=== PATIENT | male | born 1945 | race Caucasian/White ===

== ENCOUNTER → 2016-10-31 | Day surgery (SDC) | payer MEDICARE, OTHER ==
[~2016-10-31] MED LIST: AMBIEN10 MG PO; CALCIUM 250+D T1 TAB PO; CENTRUM COMPLE1 EACH PO; COLACE PO; COQ1050 MG PO; DESYREL100 MG PO; EFFEXOR75 M1 PO; FINASTERIDE5 M1 PO; FLEXERIL10 M1 PO; FLEXERIL10 MG PO; FLOMAX0.4 M1 PO; FLORA-Q 2 CAPSU1 CAP PO; KLONOPIN0.5 MG PO; LIPOIC ACID1 GM PO; MAGNESIUM100 MG PO; NAPROSYN500 MG PO; NEURONTIN300 MG PO; OMEGA 3 FISH OI1 CAP PO; OXYCODONE-ACET1 EAC1 PO; SIMVASTATIN80 MG PO; VITAMIN D-32000 UNI1 PO; WELLBUTRIN SR150 MG PO
--- NOTE | ~2016-10-31 | OR ---
Unit #: [id number] #: [id number] Patient: PRABHAKAR LEONARD [id number] [address] [address] [id number] O MR#: [id number] NAME: PRABHAKAR LEONARD. ROOM: Date of Procedure: 10/31/2016 Admission Date: 10/31/2016 Surgeon: Houston Sullivan M.D. : 1945 Attending Physician: Houston Sullivan M.D. Primary Care Physician: Kishan Nichols M.D. OPERATIVE REPORT PREOPERATIVE DIAGNOSES 1. Spinal stenosis. 2. Postfusion degenerative disk disease. 3. Back pain. 4. Radiculopathy. POSTOPERATIVE DIAGNOSES 1. Spinal stenosis. 2. Postfusion degenerative disk disease. 3. Back pain. 4. Radiculopathy. PROCEDURE PERFORMED Lumbar epidural steroid injection with fluoroscopic guidance for needle localization. INDICATIONS FOR PROCEDURE The patient is a 71-year-old male with back and bilateral lower extremity pain. He has multilevel multifactorial severe degenerative lumbar disk disease. He has been fused at L1-L2 and had thoracolumbar osteomyelitis and diskitis treated. He was treated in the past with epidural steroids with some decent success and was also managed medically. Plan is to repeat an epidural steroid injection at this point based on history, pathology, symptomatology, and treatment options. He will be does better with a small series of injections to see that lasted longer than he has done with single injections in the past. DESCRIPTION OF PROCEDURE The patient was placed in a seated position. Standard monitors were applied. Sterile prep and drape of the lumbar area was performed. The skin then at the L4 level was localized with 1% lidocaine. An 18-gauge [employer] needle was then advanced via loss of resistance technique and fluoroscopic guidance in toward the epidural space. A long needle was required. The patient did not complain of any pain or paresthesia during needle advancement. After confirming proper positioning with fluoroscopy and radiographic contrast, 80 mg of Depo-Medrol and 6 mL of preservative-free normal saline were deposited. The patient tolerated the procedure otherwise well and was discharged to the recovery room in stable condition. Dictated by... Unit #: [id number] #: [id number] Patient: NEUNPRABHAKAR FORD M.D. [facility]/zak TD: 11/01/2016 02:40 JOB #: [id number] OPERATIVE REPORT X Houston Sullivan MD X PROCEDURE OPERATIVE NOTE
== END | disposition home or self-care (01) ==
LOC: CCSC 11:23
PROVIDERS: Pain Medicine Pain Medicine
PROC: 3E0R3BZ Introduction of Anesthetic Agent into Spinal Canal, Percutaneous Approach (ICD-10-PCS; 2016-10-31)
PROC: 3E0R33Z Introduction of Anti-inflammatory into Spinal Canal, Percutaneous Approach (ICD-10-PCS; principal; 2016-10-31 12:15)
DX: M48.06 Spinal stenosis, lumbar region (principal); M51.16 Intervertebral disc disorders with radiculopathy, lumbar region; M41.9 Scoliosis, unspecified; Z98.1 Arthrodesis status; Z79.899 Other long term (current) drug therapy
CPT/HCPCS: J1040; J2250

== ENCOUNTER → 2016-11-07 | Day surgery (SDC) | payer MEDICARE, OTHER ==
--- NOTE | ~2016-11-07 | OR ---
Unit #: [id number] #: [id number] Patient: PRABHAKAR LEONARD [id number] [address] [address] [id number] O MR#: [id number] NAME: PRABHAKAR LEONARD. ROOM: Date of Procedure: 11/07/2016 Admission Date: 11/07/2016 Surgeon: Houston Sullivan M.D. : 1945 Attending Physician: Houston Sullivan M.D. Primary Care Physician: Ny Senior OPERATIVE REPORT JOB NOTE: CC: [facility]ENTER PREOPERATIVE DIAGNOSES 1. Spinal stenosis. 2. Degenerative disk disease. 3. Back pain. 4. Radiculopathy. POSTOPERATIVE DIAGNOSES 1. Spinal stenosis. 2. Degenerative disk disease. 3. Back pain. 4. Radiculopathy. PROCEDURE PERFORMED Lumbar epidural steroid injection with fluoroscopic guidance for needle localization. INDICATIONS FOR PROCEDURE The patient is a 71-year-old male with back and bilateral lower extremity pain with a longstanding problem that recently increased, had prior thoracolumbar decompression due to diskitis. He has severe stenosis at L2-L3, L3-L4, and L4-L5. Initial epidural steroid injection resulted in very good improvement for about 4 days and so the pain returned and he still has retained some [id number] relief. Based on his partial response, his pathology, and symptomatology, we are going to proceed with a second injection today. DESCRIPTION OF PROCEDURE The patient was placed in a seated position. Standard monitors were applied. Sterile prep and drape of the lumbar area was performed. The skin then to the right of midline at the L3-L4 level was localized with 1% lidocaine. An 18-gauge [employer] needle was then advanced via right paramedian approach and loss of resistance technique in toward the epidural space. The patient tolerated the procedure without complaint. After confirming proper positioning with fluoroscopy and radiographic contrast, 80 mg of Depo-Medrol and 4 mL of preservative-free normal saline were deposited. The patient tolerated the procedure otherwise well and was discharged to the recovery room in stable condition. Dictated by... Unit #: [id number] #: [id number] Patient: PRABHAKAR LEONARD Houston Sullivan M.D. [facility]/modl TD: 11/08/2016 01:52 JOB #: [id number] OPERATIVE REPORT X Houston Sullivan MD X PROCEDURE OPERATIVE NOTE
== END | disposition home or self-care (01) ==
LOC: CCSC 11:09
DX: M51.16 Intervertebral disc disorders with radiculopathy, lumbar region (principal); M48.06 Spinal stenosis, lumbar region; M41.9 Scoliosis, unspecified
CPT/HCPCS: J1040; J2250

== ENCOUNTER → 2016-11-14 | Day surgery (SDC) | payer MEDICARE, OTHER ==
--- NOTE | ~2016-11-14 | OR ---
Unit #: [id number] #: [id number] Patient: PRABHAKAR LEONARD [id number] [address] [address] [id number] O MR#: [id number] NAME: PRABHAKAR LEONARD ROOM: Date of Procedure: 11/14/2016 Admission Date: 11/14/2016 Surgeon: Houston Sullivan M.D. : 1945 Attending Physician: Houston Sullivan M.D. OPERATIVE REPORT JOB NOTE: CC: [facility] CENTER PREOPERATIVE DIAGNOSES 1. Back pain. 2. Radiculopathy. 3. Spinal stenosis. 4. Postfusion. POSTOPERATIVE DIAGNOSES 1. Back pain. 2. Radiculopathy. 3. Spinal stenosis. 4. Postfusion. PROCEDURE PERFORMED Lumbar epidural steroid injection with fluoroscopic guidance for needle localization. INDICATIONS FOR PROCEDURE The patient is a 71-year-old male, who presented with back and bilateral lower extremity pains with longstanding problems that recently gotten much significantly worse. He had prior thoracolumbar debridement fusion due to diskitis. In the lower lumbar spine, he has known severe spinal stenosis at L2-L3 and L4-L5. He is fused at L1-L2. He has had 2 injections now done in the last month, first injection helped for several days and started to wear off the second injection given much better additive improvement. Based on his additive response, his pathology, and symptomatology, we are going to proceed with a final injection today. We will follow the patient back at the pain center. DESCRIPTION OF PROCEDURE The patient was placed in a seated position. Standard monitors were applied. Sterile prep and drape of the lumbar area was performed. The skin then to the right of midline at the L3 level was localized with 1% lidocaine. An 18-gauge [employer] needle was then advanced via right paramedian approach and loss of resistance technique in toward the epidural space. The patient did not complain of any pain or paresthesia during needle advancement. After confirming proper positioning with fluoroscopy and radiographic contrast, 80 mg of Depo-Medrol and 4 mL of preservative-free normal saline were deposited. The patient tolerated the procedure otherwise well and was discharged to the recovery room in stable condition. Unit #: [id number] #: [id number] Patient: PRABHAKAR LEONARD Dictated by... Farnaz AlonzoP/zak TD: 11/15/2016 03:43 JOB #: [id number] CC: Kishan Nichols M.D. OPERATIVE REPORT Page 1 of 1 X Houston Sullivan MD X PROCEDURE OPERATIVE NOTE
== END | disposition home or self-care (01) ==
LOC: CCSC 11:11
DX: M54.16 Radiculopathy, lumbar region (principal); M48.06 Spinal stenosis, lumbar region; Z98.1 Arthrodesis status
CPT/HCPCS: J1040; J2250